=== PATIENT | male | born 1975 | race African-American/Black ===

== ENCOUNTER 2025-03-07 17:56 | Emergency (ER) | payer OTHER ==
[2025-03-07] MEDS: Diphtheria,Pertussis(Acell),Tetanus Vaccine 0.5 ML Syringe IM ONE (19:11)
[2025-03-07] MEDS: Lidocaine 1% 5 ML VIAL INJECT ONE (19:11)
[2025-03-07] MEDS: Bacitracin Oint 1 GM U/D Packet TOP ONE (19:20)
== END 2025-03-07 19:27 | disposition home or self-care (01) ==
LOC: LL.ED 17:56
DX: S61.411A Laceration without foreign body of right hand, initial encounter (principal); W26.8XXA Contact with other sharp object(s), not elsewhere classified, initial encounter; Y93.89 Activity, other specified
CPT/HCPCS: 12001; 73130-RT; 90471; 90715; 99283-25; J2003